=== PATIENT | male | born 2000 | race Caucasian/White ===

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

== ENCOUNTER 2021-11-12 16:17 | Emergency (ER) | payer OTHER ==
[2021-11-12 16:38] VITALS: BP 138/90; PULSE 60; RESP 18; TEMP 98.1; BMI 28.4
[2021-11-12] MEDS ORDERED: FAMOTIDINE 20 MG/50 ML IVPB 20 MG/50 ML MG IVPB ONE ×2 (17:08→17:24)
[2021-11-12] MEDS ORDERED: ONDANSETRON *ODT* 4 MG TABLET SL ONE (17:08)
[2021-11-12] MEDS ORDERED: SODIUM CHLORIDE 1,000 ML IV STA (17:09)
[2021-11-12] MEDS ORDERED: ONDANSETRON 4 MG/2 ML VIAL ONE (17:23)
[2021-11-12] MEDS ORDERED: ONDANSETRON 4 MG/2 ML VIAL IVPB ONE (17:32)
[2021-11-12 18:05] LABS: ALBUMIN 4.7 g/dl (3.4-5.0); BILIRUBIN,TOTAL 1.1 mg/dl (0.2-1); CALCIUM 9.5 mg/dl (8.5-10); CREATININE 0.8 mg/dl (0.55-1.3); TOT PROT 7.6 g/dl (6.4-8.2)
[2021-11-12 18:21] LABS: HEMATOCRIT 41.5 % (35.4-49); HEMOGLOBIN 14.7 G/dL (11.7-16.9); MCH 33.1 pg (25.7-33.7); MCHC 35.4 g/dl (32.0-35.9); MEAN CELL VOLUME 93.5 fl (80-96); MEAN PLT VOLUME 9.2 fl (7.5-11.1); PLATELET COUNT 250.4 10^3/uL (134-434); RBC 4.44 10^6/uL (4.00-5.60); RDW 13.9 % (11.9-15.9); WHITE BLOOD COUNT 7.1 10^3/uL (4.0-10.8)
[2021-11-12 18:39] LABS: PLATELET ESTIMATE ADEQUATE
== END 2021-11-12 18:45 | disposition home or self-care (01) ==
LOC: FER 16:17
PROC: 3E033NZ Introduction of Analgesics, Hypnotics, Sedatives into Peripheral Vein, Percutaneous Approach (ICD-10-PCS; principal; 2021-11-12)
PROC: 3E033GC Introduction of Other Therapeutic Substance into Peripheral Vein, Percutaneous Approach (ICD-10-PCS; 2021-11-12)
PROC: 3E0337Z Introduction of Electrolytic and Water Balance Substance into Peripheral Vein, Percutaneous Approach (ICD-10-PCS; 2021-11-12)
DX: A08.4 Viral intestinal infection, unspecified (principal)
CPT/HCPCS: 36415; 80053; 85027; 99284-25